=== PATIENT | female | born 1985 | race African-American/Black ===

== ENCOUNTER 2020-11-08 19:51 | Emergency (ER) | payer SELFPAY ==
--- NOTE | 2020-11-08 20:14 | NUR ---
called pt in wr. no one in waiting room at this time. will follow up
--- NOTE | 2020-11-08 20:26 | NUR ---
called pt in wr. no one in wr at this time. will follow up
--- NOTE | 2020-11-08 20:33 | NUR ---
CALLED PATIENT TO BE TRIAGED 3X. NO RESPONSE.
== END 2020-11-08 20:34 | disposition left against medical advice (07) ==
LOC: ER 19:56
DX: Z53.21 Procedure and treatment not carried out due to patient leaving prior to being seen by health care provider (principal)